=== PATIENT | female | born 1975 | race Caucasian/White ===

== ENCOUNTER 2024-12-13 05:21 | Observation (INO) ==
[2024-12-13] MEDS ORDERED: IOPAMIDOL 100 ML BOTTLE IV ONE (05:22)
[2024-12-13] MEDS: 0.9 % SODIUM CHLORIDE 1,000 ML IV ONE (05:45)
[2024-12-13] MEDS: ONDANSETRON 4 MG/2 ML VIAL IV ONE ×2 (05:45→07:31)
[2024-12-13] MEDS: KETOROLAC 15 MG/ML VIAL IV ONE (05:46)
[2024-12-13 06:07] LABS: Basophils # (Auto) 0.03 K/mcL (0.00-0.30); Basophils % (Auto) 0.3 % (0.0-2.0); Eosinophils # (Auto) 0.04 K/mcL (0.00-0.70); Eosinophils % (Auto) 0.4 % (0.0-7.0); Hematocrit 40.3 % (34.1-44.9); Hemoglobin 13.3 g/dL (11.2-15.7); Lymphocytes # (Auto) 3.46 K/mcL (1.50-4.80); Mean Cell Volume 95.3 fL (80.0-100.0); Mean Platelet Volume 9.5 fL (8.8-12.5); Monocytes # (Auto) 0.68 K/mcL (0.10-0.90); Monocytes % (Auto) 7.5 % (1.0-12.0); Neutrophils % (Auto) 53.8 % (38.0-78.0); Platelet Count 255 K/mcL (140-440); RBC 4.23 M/mcL (3.59-5.38); Red Cell Distribution Width 11.8 % (11.5-14.5); WBC 9.1 K/mcL (4.5-11.0)
[2024-12-13 06:18] LABS: ALT/SGPT 21 U/L (<40); AST/SGOT 16 U/L (<32); Albumin 4.2 gm/dL (3.2-5.2); Albumin/Globulin Ratio 1.6 (1.0-2.3); Alkaline Phosphatase 43 U/L (39-117); Bilirubin,Total 0.5 mg/dL (0.1-1.0); Blood Urea Nitrogen 10 mg/dL (6-20); Calcium 9.4 mg/dL (8.6-10.4); Carbon Dioxide 24 mmol/L (22-30); Chloride 103 mmol/L (96-108); Globulin 2.6 gm/dL (2.2-3.7); Glomerular Filtration Rate 105; Glucose 91 mg/dL (70-105); Potassium 3.7 mmol/L (3.3-5.1); Sodium 139 mmol/L (133-145)
[2024-12-13 07:11] LABS: Appearance,Urine Clear (Clear); Bilirubin,Urine Negative (Negative); Color,Urine Yellow; Glucose,Urine (UA) Negative (Negative); Ketones,Urine Negative (Negative); Leukocyte Esterase,Urine Negative /uL (Negative); Nitrate,Urine Negative (Negative); PH,Urine 5.5 (5.0-9.0); Protein,Urine Negative (Negative); Specific Gravity,Urine <= 1.005 (1.000-1.035); Urine Blood Negative ery/mcL (Negative); Urobilinogen,Urine Normal
[2024-12-13] MEDS: morphine 4 MG/ML VIAL IV ONE (07:31)
[2024-12-13] MEDS ORDERED: morphine 2 MG/ML VIAL IV PRN (07:58)
[2024-12-13] MEDS: 0.9 % SODIUM CHLORIDE 1,000 ML IV SCH (08:08)
[2024-12-13] MEDS: PIPERACILLIN SODIUM/TAZOBACTAM 3.375 GM in DEXTROSE 5% IN WATER 100 ML IV SCH (09:13)
[2024-12-13] MEDS: PIPERACILLIN SODIUM/TAZOBACTAM 3.375 GM in DEXTROSE 5% IN WATER 50 ML IV ONE (09:21)
[2024-12-13] MEDS: PIPERACILLIN SODIUM/TAZOBACTAM 3.375 GM VIAL IV ONE (09:25)
[2024-12-13] MEDS: diphenhydrAMINE 50 MG/ML VIAL IV ONE (09:51)
[2024-12-13] MEDS ORDERED: PIPERACILLIN SODIUM/TAZOBACTAM 3.375 GM in DEXTROSE 5% IN WATER 100 ML IV SCH (13:00)
[2024-12-13] MEDS: ONDANSETRON 4 MG/2 ML VIAL IV PRN (14:08)
[2024-12-13] MEDS: HYDROmorphone 0.5 MG/0.5 ML SYRINGE IV PRN (14:09)
[2024-12-13] MEDS: LEVOFLOXACIN 750 MG/150 ML BAG IV SCH (14:10)
[2024-12-13] MEDS: metroNIDAZOLE 500 MG/100 ML BAG IV SCH (15:47)
[2024-12-13] MEDS: ACETAMINOPHEN 1,000 MG/100 ML BAG IV PRN (20:33)
[2024-12-14 06:10] LABS: Basophils # (Auto) 0.05 K/mcL (0.00-0.30); Basophils % (Auto) 0.8 % (0.0-2.0); Eosinophils # (Auto) 0.02 K/mcL (0.00-0.70); Eosinophils % (Auto) 0.3 % (0.0-7.0); Hematocrit 37.7 % (34.1-44.9); Hemoglobin 11.9 g/dL (11.2-15.7); Lymphocytes # (Auto) 2.98 K/mcL (1.50-4.80); Mean Cell Volume 98.2 fL (80.0-100.0); Mean Corpuscular HGB Conc 31.6 g/dL (31.0-36.0); Mean Platelet Volume 9.7 fL (8.8-12.5); Monocytes # (Auto) 0.52 K/mcL (0.10-0.90); Monocytes % (Auto) 7.9 % (1.0-12.0); Platelet Count 229 K/mcL (140-440); RBC 3.84 M/mcL (3.59-5.38); Red Cell Distribution Width 12.1 % (11.5-14.5); WBC 6.6 K/mcL (4.5-11.0)
[2024-12-14 06:23] LABS: ALT/SGPT 22 U/L (<40); AST/SGOT 16 U/L (<32); Albumin 3.9 gm/dL (3.2-5.2); Albumin/Globulin Ratio 1.8 (1.0-2.3); Alkaline Phosphatase 42 U/L (39-117); Bilirubin,Direct 0.3 mg/dL (<0.3); Bilirubin,Total 0.7 mg/dL (0.1-1.0); Blood Urea Nitrogen 7 mg/dL (6-20); Calcium 8.4 mg/dL (8.6-10.4); Carbon Dioxide 25 mmol/L (22-30); Chloride 104 mmol/L (96-108); Globulin 2.2 gm/dL (2.2-3.7); Glomerular Filtration Rate 105; Glucose 78 mg/dL (70-105); Lactate Dehydrogenase 161 U/L (135-225); Phosphorous 3.3 mg/dL (2.5-4.5); Potassium 3.4 mmol/L (3.3-5.1); Sodium 138 mmol/L (133-145); Triglycerides 99 mg/dL (<150); Uric Acid 3.6 mg/dL (2.5-8.0)
[2024-12-14] MEDS: SUMAtriptan SUCCINATE 6 MG/0.5 ML VIAL SQ SCH (10:11)
[2024-12-14] MEDS: BUTALB/ACETAMINOPHEN/CAFFEINE 1 TABLET PO PRN (12:33)
[2024-12-14] MEDS: 0.9 % SODIUM CHLORIDE 1,000 ML IV SCH (17:44)
[2024-12-15 01:29] LABS: Appearance,Urine CLEAR (Clear); Bilirubin,Urine Negative (Negative); Color,Urine STRAW; Glucose,Urine (UA) Negative (Negative); Ketones,Urine Negative (Negative); Leukocyte Esterase,Urine Negative /uL (Negative); Nitrate,Urine Negative (Negative); Protein,Urine Negative (Negative); Specific Gravity,Urine 1.002 (1.000-1.035); Urine Blood Negative (Negative); Urine RBC 0 /hpf (0-3); Urine Squamous Epithelial Cell 1 /hpf (0-4); Urine WBC 0 /hpf (0-4); Urobilinogen,Urine Negative
[2024-12-15] MEDS: SCOPOLAMINE 1 PATCH PATCH TOPICAL SCH (04:22)
[2024-12-15] MEDS ORDERED: SCOPOLAMINE 1 PATCH PATCH TOPICAL PRN (04:24)
[2024-12-15] MEDS ORDERED: SCOPOLAMINE 1 PATCH PATCH TOPICAL SCH (10:00)
[2024-12-15] MEDS ORDERED: fentaNYL 100 MCG/2 ML VIAL ONE (11:08)
[2024-12-15] MEDS ORDERED: SUGAMMADEX SODIUM 200 MG/2 ML VIAL IV ONE (11:08)
[2024-12-15] MEDS ORDERED: PROPOFOL 200 MG/20 ML VIAL IV ONE (11:08)
[2024-12-15] MEDS ORDERED: KETAMINE 50 MG/ML Syringe IV ONE (11:08)
[2024-12-15] MEDS ORDERED: ROCURONIUM 10 MG/ML ML IV ONE ×2 (11:09→12:18)
[2024-12-15] MEDS ORDERED: DEXAMETHASONE 10 MG/ML VIAL ONE (11:09)
[2024-12-15] MEDS ORDERED: GLYCOPYRROLATE 0.2 MG/ML VIAL IV ONE (11:09)
[2024-12-15] MEDS ORDERED: LIDOCAINE 2% PF 5 ML VIAL ONE (11:09)
[2024-12-15] MEDS ORDERED: ONDANSETRON 4 MG/2 ML VIAL ONE (11:09)
[2024-12-15] MEDS ORDERED: FAMOTIDINE/PF 20 MG/2 ML VIAL IV ONE (11:56)
[2024-12-15] MEDS ORDERED: MAGNESIUM SULFATE 2 GM/50 ML BAG IV ONE (11:56)
[2024-12-15] MEDS ORDERED: PHENYLephrine 1 MG/10 ML SYRINGE (ANEST) ONE (11:59)
[2024-12-15] MEDS ORDERED: ePHEDrine 50 MG/5 ML SYRINGE (ANEST) IV ONE (12:01)
[2024-12-15] MEDS ORDERED: ONDANSETRON 4 MG/2 ML VIAL IV PRN (12:20)
[2024-12-15] MEDS ORDERED: IPRATROPIUM/ALBUTEROL 3 ML AMPUL.NEB NEB PRN (12:20)
[2024-12-15] MEDS ORDERED: DEXMEDETOMIDINE HCL 200 MCG/2 ML VIAL ONE (12:54)
[2024-12-15] MEDS ORDERED: HYDROmorphone 0.5 MG/0.5 ML SYRINGE ONE (13:02)
[2024-12-15] MEDS: fentaNYL 100 MCG/2 ML VIAL IV PRN (13:37)
[2024-12-15] MEDS: METHOCARBAMOL 1,000 MG/10 ML VIAL IV ONE (14:05)
[2024-12-15] MEDS: ACETAMINOPHEN 1,000 MG/100 ML BAG IV ONE (14:05)
[2024-12-15] MEDS: LACTATED RINGERS 1,000 ML IV SCH (14:34)
[2024-12-15] MEDS: METHOCARBAMOL 1,000 MG/10 ML VIAL ONE (14:34)
[2024-12-15] MEDS: SUMAtriptan SUCCINATE 6 MG/0.5 ML VIAL SQ ONE (20:11)
[2024-12-16 05:56] LABS: Basophils # (Auto) 0.01 K/mcL (0.00-0.30); Basophils % (Auto) 0.1 % (0.0-2.0); Eosinophils # (Auto) 0.01 K/mcL (0.00-0.70); Eosinophils % (Auto) 0.1 % (0.0-7.0); Hematocrit 34.8 % (34.1-44.9); Hemoglobin 11.2 g/dL (11.2-15.7); Lymphocytes # (Auto) 1.23 K/mcL (1.50-4.80); Lymphocytes % (Auto) 11.8 % (15.5-49.0); Mean Cell Volume 95.6 fL (80.0-100.0); Mean Corpuscular HGB Conc 32.2 g/dL (31.0-36.0); Mean Platelet Volume 9.9 fL (8.8-12.5); Monocytes # (Auto) 0.83 K/mcL (0.10-0.90); Neutrophils % (Auto) 79.9 % (38.0-78.0); Platelet Count 228 K/mcL (140-440); RBC 3.64 M/mcL (3.59-5.38); Red Cell Distribution Width 11.7 % (11.5-14.5); WBC 10.4 K/mcL (4.5-11.0)
[2024-12-16 06:33] LABS: ALT/SGPT 40 U/L (<40); AST/SGOT 38 U/L (<32); Albumin 3.8 gm/dL (3.2-5.2); Albumin/Globulin Ratio 1.9 (1.0-2.3); Alkaline Phosphatase 43 U/L (39-117); Bilirubin,Direct < 0.2 mg/dL (0-0.3); Bilirubin,Total 0.4 mg/dL (0.1-1.0); Blood Urea Nitrogen 5 mg/dL (6-20); Calcium 8.6 mg/dL (8.6-10.4); Carbon Dioxide 24 mmol/L (22-30); Chloride 105 mmol/L (96-108); Glomerular Filtration Rate 112; Glucose 132 mg/dL (70-105); Lactate Dehydrogenase 178 U/L (135-225); Phosphorous 2.3 mg/dL (2.5-4.5); Potassium 3.9 mmol/L (3.3-5.1); Sodium 137 mmol/L (133-145); Triglycerides 60 mg/dL (<150); Uric Acid 3.9 mg/dL (2.5-8.0)
== END 2024-12-16 18:00 | disposition home or self-care (01) ==
LOC: MEDSUR 05:21 → ED 05:21 → MEDSUR 10:57
PROVIDERS: ADMIT Family Medicine Adult Medicine; ATTEND Family Medicine Adult Medicine